=== PATIENT | male | born 1995 | race African-American/Black ===

== ENCOUNTER 2024-10-28 23:45 | Emergency (ER) | payer SELFPAY ==
[2024-10-29] MEDS: Oseltamivir 75 MG Cap PO ONE (01:06)
[2024-10-29] MEDS: LORazepam 1 MG Tab PO ONE (01:06)
[2024-10-29] MEDS: Ketorolac 60 MG/2 ML SDV IM ONE (01:07)
[2024-10-29] MEDS: Dexamethasone 6 MG TABLET PO ONE (01:07)
== END 2024-10-29 01:19 | disposition home or self-care (01) ==
LOC: JD.ED 23:45
DX: J10.1 Influenza due to other identified influenza virus with other respiratory manifestations (principal); M54.50 Low back pain, unspecified; Z79.899 Other long term (current) drug therapy
CPT/HCPCS: 96372; 99283; A9270; J1885; J8540; 99284